=== PATIENT | male | born 1940 | race Caucasian/White ===

== ENCOUNTER 2017-09-07 13:32 | Emergency (ER) | payer OTHER ==
[~2017-09-07] VITALS: Ht 182.9 cm; Wt 113.4 kg
[~2017-09-07 13:32] MED LIST: HYDROCODON-ACE1 EAC7 PO; ULTRAM 50MG TAB50 MG PO
[2017-09-07] MEDS ORDERED: LIPITOR10 MG PO (13:55)
[2017-09-07] MEDS ORDERED: DIGOXIN125 MCG PO (13:55)
[2017-09-07] MEDS ORDERED: LASIX 20 MG TAB20 MG PO (13:55)
[2017-09-07] MEDS ORDERED: TRAZODONE HCL50 MG PO (13:56)
[2017-09-07] MEDS ORDERED: ELIQUIS5 MG PO (13:56)
[2017-09-07 14:34] LABS: ABSOLUTE EOSINOPHILS 0.3 thou/uL (0.0-0.7); ABSOLUTE LYMPHOCYTES 1.4 thou/uL (0.8-5.3); ABSOLUTE MONOCYTES 0.7 thou/uL (0.0-1.2); ABSOLUTE NEUTROPHILS 5.5 thou/uL (1.6-8.1); BASOPHILS 0.6 %; EOSINOPHILS 3.2 %; HEMATOCRIT 37.1 % (42.0-52.0); HEMOGLOBIN 12.6 gm/dL (14.0-18.0); LYMPHOCYTES 17.6 %; MCH 36.5 pg (26.0-34.0); MCV 107.3 fL (80.0-100.0); MONOCYTES 9.4 %; MPV 7.6 fl. (7.2-11.1); NUCLEATED RBCS 0 /100WBC; PLATELET COUNT* 170 thou/uL (150-400); POLYS 69.2 %; RBC 3.46 mil/uL (4.50-6.00); RDW-CV 13.8 % (10.5-14.5); WBC 7.9 thou/uL (4.0-11.0)
[2017-09-07 14:39] LABS: CALCIUM 8.7 mg/dL (8.5-10.1); CREATININE 1.2 mg/dL (0.6-1.3); POTASSIUM 4.3 mmol/L (3.5-5.1)
[2017-09-07 14:51] LABS: ALBUMIN 3.3 g/dL (3.4-5.0); TOTAL PROTEIN 6.8 g/dL (6.4-8.2)
[2017-09-07 15:10] VITALS: BP 120/69
== END 2017-09-07 15:11 | disposition home or self-care (01) ==
LOC: M.ERS 13:32
PROVIDERS: Nurse Practitioner Family
DX: R60.9 Edema, unspecified (principal); Z88.5 Allergy status to narcotic agent; Z95.5 Presence of coronary angioplasty implant and graft

== ENCOUNTER 2020-06-19 05:16 | Emergency (ER) | payer MEDICARE ==
[~2020-06-19] VITALS: Ht 182.9 cm; Wt 106.6 kg
[~2020-06-19 05:16] MED LIST changes: +DIGOXIN125 MCG PO; +ELIQUIS5 MG PO; +LASIX 20 MG TAB20 MG PO; +LIPITOR10 MG PO; +TRAZODONE HCL50 MG PO
[2020-06-19 06:14] LABS: ABSOLUTE BASOPHILS 0.1 thou/uL (0.0-0.2); ABSOLUTE EOSINOPHILS 0.1 thou/uL (0.0-0.7); ABSOLUTE LYMPHOCYTES 0.9 thou/uL (0.8-5.3); ABSOLUTE MONOCYTES 1.1 thou/uL (0.0-1.2); ABSOLUTE NEUTROPHILS 10.9 thou/uL (1.6-8.1); BASOPHILS 0.5 %; EOSINOPHILS 0.6 %; HEMATOCRIT 34.4 % (42.0-52.0); HEMOGLOBIN 11.5 gm/dL (14.0-18.0); MCH 35.9 pg (26.0-34.0); MCHC 33.5 g/dL (28.0-37.0); MCV 107.3 fL (80.0-100.0); MONOCYTES 8.4 %; MPV 7.7 fl. (7.2-11.1); NUCLEATED RBCS 0 /100WBC; PLATELET COUNT* 205 thou/uL (150-400); POLYS 83.5 %; RBC 3.21 mil/uL (4.50-6.00); RDW-CV 13.5 % (10.5-14.5); WBC 13.1 thou/uL (4.0-11.0)
[2020-06-19 06:20] LABS: INR 1.2; PROTIME 12.4 Seconds (9.20-11.50)
[2020-06-19 06:26] LABS: CREATININE 1.5 mg/dL (0.6-1.3); POTASSIUM 4.1 mmol/L (3.5-5.1)
[2020-06-19 06:30] LABS: ALBUMIN 2.9 g/dL (3.4-5.0); TOTAL PROTEIN 6.4 g/dL (6.4-8.2)
[2020-06-19 09:15] VITALS: BP 109/53
--- NOTE | 2020-06-20 10:24 | EKG ---
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 06/20/20 1024 0539 0539 Patrick Carrizales MD, [facility] /EPI
== END 2020-06-19 09:15 | disposition short-term general hospital (02) ==
LOC: M.ERS 05:16
PROVIDERS: Emergency Medicine
DX: I71.3 Abdominal aortic aneurysm, ruptured (principal); Z20.828 Contact with and (suspected) exposure to other viral communicable diseases; Z95.1 Presence of aortocoronary bypass graft; Z95.5 Presence of coronary angioplasty implant and graft; Z88.5 Allergy status to narcotic agent

== ENCOUNTER 2020-10-26 20:14 | Observation (INO) | payer MEDICARE ==
[~2020-10-26] VITALS: Ht 182.9 cm; Wt 127.0 kg
[2020-10-26 20:16] VITALS: BP 137/82
[2020-10-26] MEDS ORDERED: PROAIR HFA8.5 GM INH (20:19)
[2020-10-26] MEDS ORDERED: CHILDREN'S ASPI81 M1 PO (20:19)
[2020-10-26] MEDS ORDERED: PLAVIX 75 MG TA75 MG PO (20:20)
[2020-10-26] MEDS ORDERED: DIGOX125 MCG PO (20:20)
[2020-10-26] MEDS ORDERED: CERTAVITE-LUTE1 EAC1 PO (20:20)
[2020-10-26] MEDS ORDERED: MELATONIN3 M1 PO (20:21)
[2020-10-26] MEDS ORDERED: LEVOTHYROXINE25 MC1 PO (20:21)
[2020-10-26] MEDS ORDERED: SEROQUEL 25 MG25 MG PO (20:22)
[2020-10-26] MEDS ORDERED: PROTONIX40 M2 PO (20:22)
[2020-10-26] MEDS ORDERED: KLOR-CON 1010 MEQ PO (20:22)
[2020-10-26] MEDS ORDERED: FLOMAX0.4 MG PO (20:23)
[2020-10-26] MEDS ORDERED: TYLENOL325 M1 PO (20:23)
[2020-10-26 20:39] LABS: ABSOLUTE BASOPHILS 0.1 thou/uL (0.0-0.2); ABSOLUTE EOSINOPHILS 0.2 thou/uL (0.0-0.7); ABSOLUTE MONOCYTES 0.7 thou/uL (0.0-1.2); ABSOLUTE NEUTROPHILS 4.4 thou/uL (1.6-8.1); EOSINOPHILS 2.6 %; HEMATOCRIT 31.9 % (42.0-52.0); HEMOGLOBIN 10.9 gm/dL (14.0-18.0); LYMPHOCYTES 16.6 %; MCHC 34.3 g/dL (28.0-37.0); MCV 99.1 fL (80.0-100.0); MONOCYTES 10.8 %; MPV 7.4 fl. (7.2-11.1); NUCLEATED RBCS 0 /100WBC; PLATELET COUNT* 186 thou/uL (150-400); RBC 3.21 mil/uL (4.50-6.00); RDW-CV 14.8 % (10.5-14.5); WBC 6.3 thou/uL (4.0-11.0)
[2020-10-26 20:47] LABS: CALCIUM 8.7 mg/dL (8.5-10.1); CREATININE 1.4 mg/dL (0.6-1.3); INR 1.1; POTASSIUM 3.9 mmol/L (3.5-5.1); PROTIME 11.9 Seconds (9.20-11.50)
[2020-10-26 20:57] LABS: ALBUMIN 3.2 g/dL (3.4-5.0); MAGNESIUM 2.2 mg/dL (1.8-2.4); TOTAL PROTEIN 6.7 g/dL (6.4-8.2)
[2020-10-26 21:50] LABS: URINE BILIRUBIN NEGATIVE (Negative); URINE BLOOD NEGATIVE (Negative); URINE CLARITY CLEAR; URINE COLOR YELLOW; URINE GLUCOSE-RANDOM NEGATIVE (Negative); URINE KETONES NEGATIVE (Negative); URINE LEUKOCYTES-REFLEX TRACE (Negative); URINE NITRITE-REFLEX NEGATIVE (Negative); URINE PROTEIN NEGATIVE (Negative); URINE SPECIFIC GRAVITY 1.015 (1.005-1.030)
[2020-10-26 21:57] LABS: BACTERIA-REFLEX 1-9 Few /HPF (None Seen); CASTS None Seen /LPF (None Seen); CRYSTALS None Seen /LPF (None Seen); SQUAMOUS 4-10 Moderate /LPF (0-3); URINE RBC 0-2 Rare /HPF (0-2); URINE WBC-REFLEX 0-5 Rare /HPF (0-5)
[2020-10-27 00:45] VITALS: BP 131/72
[2020-10-27 00:49] VITALS: BP 132/75
[2020-10-27 04:20] VITALS: BP 113/77
[2020-10-27 08:00] VITALS: BP 149/92
--- NOTE | 2020-10-27 08:41 | EKG ---
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
[2020-10-27 12:00] VITALS: BP 137/93
== END 2020-10-27 14:24 ==
LOC: M.ERS 20:14 → M.TBA-ER 23:55 → M.2W 10-27 00:39
PROVIDERS: Emergency Medicine; ADMIT Internal Medicine; ATTEND Internal Medicine
DX: R07.89 Other chest pain (principal); Z20.822 Contact with and (suspected) exposure to COVID-19; R10.11 Right upper quadrant pain; I71.4 Abdominal aortic aneurysm, without rupture; J90 Pleural effusion, not elsewhere classified; I48.19 Other persistent atrial fibrillation; R79.89 Other specified abnormal findings of blood chemistry; Z95.1 Presence of aortocoronary bypass graft; Z79.82 Long term (current) use of aspirin; Z79.899 Other long term (current) drug therapy

== ENCOUNTER 2020-11-23 06:27 | Emergency (ER) | payer MEDICARE ==
[~2020-11-23] VITALS: Ht 182.9 cm; Wt 99.8 kg
[~2020-11-23 06:27] MED LIST changes: +CERTAVITE-LUTE1 EAC1 PO; +CHILDREN'S ASPI81 M1 PO; +DIGOX125 MCG PO; +FLOMAX0.4 MG PO; +KLOR-CON 1010 MEQ PO; +LEVOTHYROXINE25 MC1 PO; +MELATONIN3 M1 PO; +PLAVIX 75 MG TA75 MG PO; +PROAIR HFA8.5 GM INH; +PROTONIX40 M2 PO; +SEROQUEL 25 MG25 MG PO; +TYLENOL325 M1 PO
[2020-11-23 06:49] LABS: ABSOLUTE BASOPHILS 0.1 thou/uL (0.0-0.2); ABSOLUTE EOSINOPHILS 0.2 thou/uL (0.0-0.7); ABSOLUTE LYMPHOCYTES 0.7 thou/uL (0.8-5.3); ABSOLUTE MONOCYTES 0.5 thou/uL (0.0-1.2); ABSOLUTE NEUTROPHILS 4.3 thou/uL (1.6-8.1); EOSINOPHILS 2.7 %; HEMATOCRIT 32.5 % (42.0-52.0); HEMOGLOBIN 11.3 gm/dL (14.0-18.0); LYMPHOCYTES 12.8 %; MCHC 34.8 g/dL (28.0-37.0); MCV 100.5 fL (80.0-100.0); MONOCYTES 9.4 %; MPV 7.2 fl. (7.2-11.1); NUCLEATED RBCS 0 /100WBC; PLATELET COUNT* 181 thou/uL (150-400); POLYS 74.1 %; RBC 3.23 mil/uL (4.50-6.00); RDW-CV 15.2 % (10.5-14.5); WBC 5.8 thou/uL (4.0-11.0)
[2020-11-23 06:57] LABS: CALCIUM 8.7 mg/dL (8.5-10.1); CREATININE 1.3 mg/dL (0.6-1.3)
[2020-11-23 07:02] LABS: ALBUMIN 3.2 g/dL (3.4-5.0); TOTAL BILIRUBIN 1.3 mg/dL (<0.1-1.0); TOTAL PROTEIN 7.1 g/dL (6.4-8.2)
[2020-11-23] MEDS ORDERED: PERCOCET PO ×2 (08:15→08:21)
[2020-11-23 08:44] VITALS: BP 142/77
== END 2020-11-23 09:47 | disposition home or self-care (01) ==
LOC: M.ERS 06:27
PROVIDERS: Emergency Medicine
DX: S20.211A Contusion of right front wall of thorax, initial encounter (principal); S20.221A Contusion of right back wall of thorax, initial encounter; E78.5 Hyperlipidemia, unspecified; I50.9 Heart failure, unspecified; E03.9 Hypothyroidism, unspecified; K21.9 Gastro-esophageal reflux disease without esophagitis; Z95.1 Presence of aortocoronary bypass graft; Z95.5 Presence of coronary angioplasty implant and graft; Z88.5 Allergy status to narcotic agent; W18.39XA Other fall on same level, initial encounter; Y93.89 Activity, other specified; Y92.89 Other specified places as the place of occurrence of the external cause; Y99.8 Other external cause status

== ENCOUNTER 2021-03-04 16:07 | Emergency (ER) | payer MEDICARE ==
[~2021-03-04] VITALS: Ht 180.3 cm; Wt 102.1 kg
[~2021-03-04 16:07] MED LIST changes: +PERCOCET PO
[2021-03-04 18:07] VITALS: BP 134/68
== END 2021-03-04 18:08 | disposition home or self-care (01) ==
LOC: M.ERS 16:07
DX: M25.551 Pain in right hip (principal); M25.552 Pain in left hip; Z98.61 Coronary angioplasty status; E78.5 Hyperlipidemia, unspecified; I48.91 Unspecified atrial fibrillation; E03.9 Hypothyroidism, unspecified; K21.9 Gastro-esophageal reflux disease without esophagitis; Z79.899 Other long term (current) drug therapy; Z79.82 Long term (current) use of aspirin; Z88.6 Allergy status to analgesic agent; W18.12XA Fall from or off toilet with subsequent striking against object, initial encounter; Y93.89 Activity, other specified; Y92.89 Other specified places as the place of occurrence of the external cause; Y99.8 Other external cause status